=== PATIENT | male | born 1960 | race Two or more races ===

== ENCOUNTER 2019-03-16 10:45 | Outpatient (CLI) | payer OTHER | END 2019-03-16 16:19 | disposition home or self-care (01) | LOC: SONOGRAMA 10:45 | DX: N40.3 Nodular prostate with lower urinary tract symptoms (principal); R97.20 Elevated prostate specific antigen [PSA] ==

== ENCOUNTER → 2019-10-26 | Outpatient (CLI) | payer OTHER | END | disposition home or self-care (01) | LOC: TOM 10-25 08:32 → MAMO-SONO 10-25 08:45 → TOM 10-25 08:45 | DX: N20.0 Calculus of kidney (principal); N30.00 Acute cystitis without hematuria ==

== ENCOUNTER 2023-10-26 07:53 | Outpatient (CLI) | payer OTHER | END 2023-10-26 08:28 | disposition home or self-care (01) | LOC: SONOGRAMA 07:53 | PROVIDERS: ATTEND Specialist | DX: R97.20 Elevated prostate specific antigen [PSA] (principal); N40.3 Nodular prostate with lower urinary tract symptoms ==